=== PATIENT | male | born 1945 | race Caucasian/White ===

== ENCOUNTER 2017-07-27 10:09 | Outpatient (CLI) | payer MEDICARE, BC ==
[2017-07-27] MEDS ORDERED: Gadobenate Dimeglumine 529 MG/1 ML (20ML VIAL) ONE (11:13)
--- NOTE | 2017-07-27 13:44 | MRI ---
MRI OF THE ABDOMEN WITHOUT AND WITH CONTRAST: COMPARISON: Right upper quadrant ultrasound 07/10/17. HISTORY: Abnormality in the gallbladder seen on prior examination. TECHNIQUE: Multiple, multisequence MR images were obtained of the abdomen without and with IV contrast. FINDINGS: The gallbladder is normal in size. Along the fundus of the gallbladder is a 1.2 cm area demonstratin g heterogeneous signal. This appears to demonstrate enhancement on the postcontrast images. This le chelsea is nonspecific and may either arise from the gallbladder wall or the adjacent liver. There is d iffuse loss of signal of the liver on out of phase images consistent with diffuse fatty infiltration. No biliary dilatation is seen. There are multiple well-circumscribed nonenhancing foci of high T2 si gnal in the bilateral kidneys measuring up to 1.7 cm in size which represent cysts. The adrenal glan ds, spleen, and pancreas are unremarkable. No abdominal adenopathy is seen. No marrow signal abnorm ality is present. IMPRESSION: 1. There is a nonspecific enhancing lesion along the fundus of the gallbladder. This could represen t a gallbladder polyp. This does not have significantly delayed enhancement on the postcontrast imag es to suggest cholangiocarcinoma but this would be in the differentiation diagnosis. This could also represent focal gallbladder wall adenomyomatosis. A followup MRI in 6 months is recommended to ensu re stability. 2. Bilateral renal cysts. 3. Fatty liver. POS: ALESSANDRA
== END 2017-07-27 10:10 | disposition home or self-care (01) ==
LOC: MRI 10:09
PROVIDERS: ATTEND Family Medicine
DX: R93.5 Abnormal findings on diagnostic imaging of other abdominal regions, including retroperitoneum (principal); K82.9 Disease of gallbladder, unspecified; N28.1 Cyst of kidney, acquired; K76.0 Fatty (change of) liver, not elsewhere classified
CPT/HCPCS: 74183; A9579